=== PATIENT | male | born 1970 | race Caucasian/White ===

== ENCOUNTER 2022-10-15 15:47 | Emergency (ER) | payer BC ==
[2022-10-15 15:59] VITALS: BP 150/72
[2022-10-15] MEDS ORDERED: lidocaine 1% 20 ML MDV SUBQ ONE (16:14)
[2022-10-15] MEDS ORDERED: BACITRACIN ZINC OINT 1 PACKET TOP STA (16:54)
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
== END 2022-10-15 17:18 | disposition home or self-care (01) ==
LOC: ED 15:47
DX: S01.81XA Laceration without foreign body of other part of head, initial encounter (principal); S50.312A Abrasion of left elbow, initial encounter; S80.212A Abrasion, left knee, initial encounter; S60.221A Contusion of right hand, initial encounter; S80.02XA Contusion of left knee, initial encounter; V19.88XA Pedal cyclist (driver) (passenger) injured in other specified transport accidents, initial encounter; Y93.55 Activity, bike riding
CPT/HCPCS: 12013; 99282; A9270